=== PATIENT | female | born 1960 | race Caucasian/White ===

== ENCOUNTER → 2022-10-06 02:58 | Outpatient (CLI) | payer BC, SELFPAY ==
--- NOTE | 2022-10-06 | DI.US_ITS ---
APPROVED REPORT EXAM: Comprehensive 2D, Doppler, and color-flow Echocardiogram Patient Location: Out-Patient Refrigerating Engineer: Rukhsana Mancini RDCS (AE) Indications: Essential HTN Other Information Study Quality: Adequate Conclusion Normal left ventricular wall thickness and chamber size. Estimated ejection fraction is 55 to 60%. Wall motion is normal Normal right ventricular size and systolic function Both atria are normal in size There is no structural or hemodynamically significant valvular disease Normal estimated right ventricular systolic pressure 22 mmHg Wall motion Left Ventricle The left ventricle is normal size. The left ventricular systolic function is normal. The left ventric ular ejection fraction is within the normal range. There is normal left ventricular wall thickness. T here is normal LV segmental wall motion. There is no ventricular septal defect visualized. LVEF is 58 %. Right Ventricle The right ventricle is normal size. The right ventricular systolic function is normal. The RVSP is 21 .8mmHg. Atria The left atrium size is normal. The right atrium size is normal. The interatrial septum is intact wit h no evidence for an atrial septal defect. Aortic Valve The aortic valve is normal in structure. Aortic valve is trileaflet. There is no aortic valvular sten osis. No aortic regurgitation is present. Mitral Valve The mitral valve is normal in structure. No evidence of mitral valve stenosis. Trace mitral regurgita tion. Tricuspid Valve The tricuspid valve is normal in structure. There is no tricuspid valve stenosis. Mild tricuspid regu rgitation. Pulmonic Valve The pulmonary valve is normal in structure. There is no pulmonic valvular stenosis. Trace to mild pul angie regurgitation. Great Vessels The aortic root is normal in size. The ascending aorta is normal in size. Aortic arch is normal in ca liber. IVC is normal in size and collapses >50% with inspiration. Pericardium There is no pericardial effusion. 2D Dimensions IVSD d PLAX 0.91 cm F: 0.6-1.0 LV Vol A2C d MOD 87.0 mL LVPW d PLAX 0.88 cm F: 0.6 - 1.0 LV Vol A4C d MOD 91.9 mL LVID d PLAX 4.37 cm F: 3.8 - 5.2 LA vol/ BSA A2C s A-L 22.0 mL/m2 LVDs 2.95 cm F: 2.2 - 3.5 LA vol/ BSA A4C s A-L 22.5 mL/m2 Ao Root d 3.26 cm F: 2.7 - 3.3 LA Vol/ BSA Biplane s A-L 23.5 mL/m2 RA Area A4C 13.38 cm2 LA Area A4C s MOD 13.71 cm2 RA Vol/ BSA A4C s A-L 22.2 mL/m2 LA Area A2C s MOD 12.83 cm2 Ao Asc Diam d 3.22 cm F: 2.3 - 3.1 LV EF A4C MOD 58.3 % LV EF Teichholz 59.4 % LV EF A2C MOD 57.9 % LVEF (Draek's) 59.02 % F: 54 - 74 LV EF Biplane MOD 59.0 % LV Volume 75.41 mL F: 46 - 106 SV 55.84 mL LV Volume Index 44.88 mL/m2 F: 29 - 61 SV Index 33.16 mL/m2 LV Vol Biplane MOD 94.6 mL FS 31.30 % M-Mode TAPSE 1.58 cm (M/F) >1.7 LV Diastology MV E' medial 0.069 (>0.07 m/s) E/A Ratio 1.2 LV E/e MED 9.45 (<14) MV E Vmax 0.66 (0.4-1.3 m/s) MV E' lateral 0.082 (>0.1 m/s) MV A Vmax 0.55 (0.4-1.3 m/s) LV E/e LAT 8.00 (<14) MV E/A Ratio 1.17 MV E/E' medial 9.48 MV E/E' lateral 8.01 Aortic Valve LVOT Area 3.03 cm2 AoV Area Vmax 2.72 cm2 LVOT Vmax 0.99 m/s AoV Area/ BSA (Vmax) 1.61 cm2/m2 LVOT Mean Ramon. 0.59 m/s SLOANE Mean Ramon. 2.34 cm2 LVOT Peak Grad 3.9 mmHg SLOANE Mean Ramon. Index 1.39 cm2/m2 LVOT Mean Grad 1.7 mmHg LVOT VTI 0.228 m LVOT Diam s 1.95 cm AoV Vmax 1.10 m/s Velocity Ratio 0.90 AoV Mean Ramon. 0.77 m/s AoV Peak Grad 4.9 mmHg LVOT SV 69.11 mL AoV Mean Grad 2.6 mmHg AoV VTI 0.230 m AoV Area VTI 3.00 cm2 AoV Area/ BSA (VTI) 1.78 cm/m2 Mitral Valve MV DT 238 (160-240 msec) MV PHT 69 msec MV Area PHT 3.18 cm2 MV VTI 0.398 m MV Area VTI 1.74 (4.0-6.0 cm2) Pulmonary Valve PV Vmax 0.65 (0.5-1.5 m/s) RVOT Peak Gr. 0.99 mmHg PV Peak Grad 1.7 mmHg RVOT Mean Gr. 0.55 mmHg PV Mean Grad 1.0 mmHg RVOT VTI 0.112 m PV VTI 0.141 m RVOT Vmax 0.50 m/s Tricuspid Valve TR Peak Grad 18.8 mmHg TR Vmax 2.17 m/s RA Pressure 3.00 mmHg RVSP (TR) 21.8 mmHg
== END ==
PROVIDERS: Visit Provider Neuromusculoskeletal Medicine & OMM
DX: I10 Essential (primary) hypertension (principal)
CPT/HCPCS: 93306